=== PATIENT | male | born 1980 | race Caucasian/White ===

== ENCOUNTER 2019-08-17 12:01 | Emergency (ER) | payer SELFPAY ==
[~2019-08-17] VITALS: Ht 180.3 cm; Wt 81.6 kg
[2019-08-17 12:55] VITALS: BP 137/78
[2019-08-17] MEDS ORDERED: FLUORESCEIN OPHTH TEST STRIP. ONE (12:59)
[2019-08-17] MEDS ORDERED: TETRACAINE 0.5% OPHTH SOLUTION 4ML BOTTLE. ONE (12:59)
[2019-08-17] MEDS ORDERED: ERYT1OIN6 OD (14:04)
[2019-08-17] MEDS ORDERED: HYDR-2759 PO (14:04)
[2019-08-17] MEDS ORDERED: TOBR5DRO6 OD (14:04)
--- NOTE | 2019-08-17 14:04 | PHYS DOC ---
Past Medical History Past Medical History: No Pertinent History, Hypertension Past Surgical History: No Surgical History Smoking: Cigarettes, Less than 1pk/day Alcohol Use: None Drug Use: None Adult General Chief Complaint Chief Complaint: EYE PROBLEMS HPI HPI Patient is a 38 year old male who presents to the ER with complaints of a foreign body in his right eye and right eye pain. Pt states he was using an air tool at work when he felt something blow into his eye. He denies any vision changes, he reports that his eye has been tearing and sensitive to the light since the injury. He currently rates his pain 9/10 on the pain scale, he denies any alleviating factors the pain increases if he opens his eye. His last tetanus shot was last month. He does not wear contact lenses. Review of Systems Review of Systems Constitutional: Denies fever or chills [] Eyes: Denies change in visual acuity; see HPI GI: Denies nausea, or vomiting Integument: Denies rash or skin lesions [] Neurologic: Denies headache Complete systems were reviewed and found to be within normal limits, except as documented in this note. Current Medications Current Medications Current Medications Medications (Trade) Dose Ordered Sig/Eligio Start Time Stop Time Status Last Admin Dose Admin Erythromycin (Romycin) 0.5 inch 1X ONCE 08/17/19 14:15 08/17/19 14:16 DC 08/17/19 14:01 0.5 INCH Fluorescein Sodium (Ful-Cheri) 1 strip 1X ONCE 08/17/19 14:30 08/17/19 14:17 DC 08/17/19 13:57 1 STRIP Tetracaine HCl (Tetracaine) 1 drop 1X ONCE 08/17/19 14:30 08/17/19 14:17 DC 08/17/19 13:57 1 DROP Allergies Allergies Allergies Coded Allergies Type Severity Reaction Last Updated Verified No Known Drug Allergies 08/17/19 No Physical Exam Physical Exam Constitutional: Well developed, well nourished, no acute distress, non-toxic appearance. [] HENT: Normocephalic, atraumatic, bilateral external ears normal, oropharynx moist, no oral exudates, nose normal. [] Eyes: PERRLA, EOMI, R eye: conjunctiva injected with visible corneal FB at 6 o'clock over the iris, watery discharge; L eye conjunctiva normal, no discharge Neck: Normal range of motion, no stridor. [] Lungs & Thorax: Respirations even and unlabored, no retractions, no respiratory distress Skin: Warm, dry, no erythema, no rash. [] Back: No tenderness Extremities: No cyanosis, no clubbing, ROM intact, no edema. [] Neurologic: Alert and oriented X 3, no focal deficits noted. [] Psychologic: Affect normal, judgement normal, mood normal. [] Current Patient Data Vital Signs Vital Signs Date Time Temp Pulse Resp B/P (MAP) Pulse Ox O2 Delivery O2 Flow Rate FiO2 08/17/19 12:55 98.1 81 16 137/78 (97) 98 Room Air 98.1 EKG EKG [] Radiology/Procedures Radiology/Procedures Using tetracaine and fluroscein the patient's eye was examined under Wood's lamp and an area of uptake with foreign body was visualized at approximately 6 o'clock was noted there was additional uptake noted to the lateral conjunctiva Dr. Pacheco came to the bedside and the foreign body was removed using an 18 gauge needle followed by use of an eye namrata. Patient's ocular symptoms have stabilized while they have been evaluated in the department and are appropriate for outpatient work up. No evidence of ruptured globe, retinal detachment, acute angle closure glaucoma, or deep space infection. Plan for 24 hour ophthalmologic follow up with Dr. Theodore[] Course & Med Decision Making Course & Med Decision Making Pertinent Labs and Imaging studies reviewed. (See chart for details) dx: Right eye corneal abrasion, right eye conjunctival abrasion, right eye foreign body removal Foreign body was removed from right eye as documented under procedures. Patient was given an initial dose of erythromycin eye ointment in the emergency department. Prescriptions written for erythromycin eye ointment, tobramycin eyedrops, and hydrocodone. Patient was given strict follow-up instructions to be seen by Dr. Theodore tomorrow for reevaluation. He was advised to call today to schedule that appointment. Return to the emergency room if symptoms worsen or any vision changes. Patient verbalized an understanding of home care, medications, follow-up, and return to ED instructions and was in agreement with the plan of care. [] Dragon Disclaimer Dragon Disclaimer This electronic medical record was generated, in whole or in part, using a voice recognition dictation system. Departure Departure Impression: Primary Impression: Acute foreign body of right eye Additional Impression: Injury of right conjunctiva and corneal abrasion Disposition: HOME, SELF-CARE Condition: STABLE Referrals: NO PCP (PCP) Taniya THEODORE MD Patient Instructions: Eye - Corneal Abrasion, [id number], Eye - Corneal Foreign Body Additional Instructions: Fill the prescriptions and use as directed. Use the erythromycin eye ointment at night. Use the eye drops during the day. Follow up with Dr. Theodore tomorrow, call today to schedule an appointment. Return to the ER if your symptoms worsen. Scripts Hydrocodone/Acetaminophen (Hydrocodone-Acetamin 5-325 mg) 1 Each Tablet 1 EACH PO Q6HRS PRN for PAIN MDD 4 for 3 Days, #12 TAB 0 Refills Prov: JONATHAN GARSIA APRN 08/17/19 Tobramycin (TOBRAMYCIN) 5 Ml Drops 1 DROP OD QID for 5 Days, #5 ML 0 Refills Prov: JONATHAN GARSIA APRN 08/17/19 Erythromycin Base (Erythromycin) 1 Gm Oint...g. 0.5 INCH OD HS for 5 Days, #1 TUBE 0 Refills Prov: JONATHAN GARSIA APRN 08/17/19 Problem Qualifiers Primary Impression: Acute foreign body of right eye Encounter type: initial encounter Qualified Codes: T15.91XA - Foreign body on external eye, part unspecified, right eye, initial encounter Additional Impression: Injury of right conjunctiva and corneal abrasion Encounter type: initial encounter Qualified Codes: S05.01XA - Injury of conjunctiva and corneal abrasion without foreign body, right eye, initial encounter JONATHAN GARSIA [employer] Aug 17, 2019 14:04
[2019-08-17] MEDS ORDERED: ERYTHROMYCIN 0.5% OPHTH OINTMENT 1GM TUBE. OD ONE (14:15)
[2019-08-17] MEDS ORDERED: TETRACAINE 0.5% OPHTH SOLUTION 4ML BOTTLE. OD ONE (14:30)
[2019-08-17] MEDS ORDERED: FLUORESCEIN OPHTH TEST STRIP. OD ONE (14:30)
== END 2019-08-17 14:17 | disposition home or self-care (01) ==
LOC: ER 12:01
DX: T15.91XA Foreign body on external eye, part unspecified, right eye, initial encounter (principal); I10 Essential (primary) hypertension; F17.200 Nicotine dependence, unspecified, uncomplicated; X58.XXXA Exposure to other specified factors, initial encounter; Y93.89 Activity, other specified; Y92.89 Other specified places as the place of occurrence of the external cause; Y99.8 Other external cause status
CPT/HCPCS: 65222; 99284